=== PATIENT | female | born 1955 | race Caucasian/White ===

== ENCOUNTER 2023-08-17 16:11 | Inpatient (IN) | payer MEDICARE, SELFPAY ==
[2023-08-17] VITALS (32 sets, daily range): BP systolic 122–187; BP diastolic 70–90; PULSE 74–92; TEMP 36.4–36.7; O2SAT 90–96; BMI 48.1; BMI 37.5
--- NOTE | 2023-08-17 16:18 | ED.FALL1 ---
HPI HPI - Fall General Chief Complaint: Fall Stated Complaint: FALL Time Seen by Provider: 08/17/23 16:18 Source: patient History of Present Illness HPI Narrative: This patient brought to us by paramedics from her home for a fall. Apparently she lives independently. Apparently friends came to her house and she was found on the floor. They summoned paramedics and they left her on the floor. The paramedics indicate that she was awake alert oriented x 3. She has some discomfort in her left knee and left foot and ankle area but really did not complain of anything else. She cannot confirm exactly how long she has been on the floor. She does not have a headache chest pain or shortness of breath at the time. Does not have any pain in her upper extremities. She has no pain in her pelvis or right lower extremity. . Related Data Home Medications ?Medication ?Instructions ?Recorded ?Confirmed No Known Home Medications 08/17/23 08/17/23 Allergies Allergy/AdvReac Type Severity Reaction Status Date / Time Penicillins Allergy Unknown Verified 08/17/23 16:29 shellfish derived Allergy Unknown Verified 08/17/23 16:29 Opioid HPI Opioid Management Most Recent Pain and Opioid Data: No Data to Display Exam Narrative Exam Narrative: She was seen immediately on arrival by myself. Vitals are yet to be taken. She is awake alert patient's GCS is 15. She was not sure what year it was but other questions were answered appropriately. HEENT shows no abrasions contusions or evidence of injury. She has no tenderness to palpation of the calvarium or the cervical spine. Her chest wall is nontender. No discomfort with palpating the ribs or the sternum. Her breath sounds are normal. She is obese but does not complain of any abdominal pain or pelvic pain at this time. Passive range of motion of the right lower extremity reproduces no pain or discomfort. However she does have discomfort with movement of her left lower extremity. Skin is warm and dry mucous memories are moist and pink she does not have any pallor or diaphoresis Constitutional Vital Signs, click to edit/add: Last Vital Signs Temp 98.1 F 08/17/23 16:13 Pulse 80 08/17/23 18:30 Resp 23 H 08/17/23 18:30 BP 173/84 H 08/17/23 18:00 Pulse Ox 93 L 08/17/23 18:30 O2 Del Method Room Air 08/17/23 16:13 Course Vital Signs Vital signs: Vital Signs Temperature 98.1 F 08/17/23 16:13 Pulse Rate 89 08/17/23 16:13 Respiratory Rate 24 H 08/17/23 16:13 Blood Pressure 150/90 H 08/17/23 16:13 Pulse Oximetry 94 L 08/17/23 16:13 Oxygen Delivery Method Room Air 08/17/23 16:13 Temperature 98.1 F 08/17/23 16:13 Pulse Rate 80 08/17/23 18:30 Respiratory Rate 23 H 08/17/23 18:30 Blood Pressure 173/84 H 08/17/23 18:00 Pulse Oximetry 93 L 08/17/23 18:30 Oxygen Delivery Method Room Air 08/17/23 16:13 MDM - Fall MDM Narrative Medical decision making narrative: Preliminary review of the patient's head CT shows a large area of encephalomalacia of the left frontal lobe consistent with her previous stroke many years ago. These findings were noted on the 2019 CT of her head. Her twelve-lead EKG today shows what appears to be new ST segment changes over the inferior lateral area and her troponin is elevated as well. We have given her 160 mg of aspirin but I will wait for the official CT reading before starting any heparin. Additionally we will repeat the troponin level. She says that she did not recall having any palpitations pain pressure or discomfort in her chest in the last several days but she is a very poor historian at this time. Her CPK is elevated consistent with her lying on the floor. She also now complains of knee pain so we will have to image that area as well. This patient's repeat troponin came back at 168 which is above the previous 146 level. We have started her on a heparin drip since her CT brain showed no acute hemorrhage or abnormality. All her plain imaging studies are normal. We will call the hospitalist and see if they would like to keep the patient here. As previously noted her twelve-lead EKG shows some inferior lateral ST segment depression and recurrently trying to avail ourselves to previous EKGs. Lab Data Labs: Lab Results 08/17/23 08/17/23 Range/Units 16:46 17:55 WBC 10.4 (4.0-11.0) 10^3/uL RBC 5.61 H (4.20-5.40) 10^6/uL Hgb 16.3 H (12.0-16.0) g/dL Hct 50.2 H (36.0-48.0) % MCV 89.5 (81.0-99.0) fL MCH 29.1 (26.7-34.0) pg MCHC 32.5 (29.9-35.2) g/dL RDW 13.8 (11.0-15.0) % Plt Count 241 (150-450) 10^3/uL MPV 9.9 (9.5-13.5) fL Neut % (Auto) 83.8 H (43.0-75.0) % Lymph % (Auto) 6.4 L (20.5-60.0) % [place] % (Auto) 8.2 (1.7-12.0) % Eos % (Auto) 0.3 L (0.9-7.0) % Baso % (Auto) 0.9 (0.2-2.0) % Neut # (Auto) 8.7 H (1.4-6.5) 10^3/uL Lymph # (Auto) 0.7 L (1.2-3.8) 10^3/uL [place] # (Auto) 0.9 H (0.3-0.8) 10^3/uL Eos # (Auto) 0.0 (0.0-0.7) 10^3/uL Baso # (Auto) 0.1 (0.0-0.1) 10^3/uL Abs Immat Gran (auto) 0.04 H (0.00-0.03) 10^3/uL Imm/Tot Granulo (auto) 0.4 (0.0-0.5) % PT 11.9 H (9.0-11.6) sec INR 1.14 Sodium 146 H (136-145) mmol/L Potassium 3.4 L (3.5-5.1) mmol/L Chloride 105 (98-107) mmol/L Carbon Dioxide 29.4 (21.0-32.0) mmol/L Anion Gap 15.0 BUN 22.0 H (7.0-18.0) mg/dL Creatinine 1.70 H (0.55-1.02) mg/dL Est GFR ( Amer) 36 L (>=60) Est GFR (Non-Af Amer) 30 L (>=60) BUN/Creatinine Ratio 12.9 Glucose 198 H (74-106) mg/dL Lactate 2.4 H* (0.4-2.0) mmol/L Calcium 9.6 (8.5-10.1) mg/dL Total Bilirubin 3.3 H (0.2-1.0) mg/dL AST 36 (15-37) U/L ALT 14 (14-59) U/L Alkaline Phosphatase 68 (46-116) U/L Total Creatine Kinase 808 H* (26-192) U/L Troponin I High Sens 146.4 H* 160.5 H* (4.0-51.3) pg/mL Total Protein 6.5 (6.4-8.2) g/dL Albumin 3.0 L (3.4-5.0) g/dL Globulin 3.5 g/dL Albumin/Globulin Ratio 0.9 Discharge Plan Discharge Chief Complaint: Fall Clinical Impression: Rhabdomyolysis, Non-ST elevated myocardial infarction (non-STEMI) Patient Disposition: Still a Patient Prescriptions / Home Meds: No Action No Known Home Medications Print Language: Cape Verdean Referrals: Shaikh Brewer MD [Primary Care Provider] - 1 week
--- NOTE | 2023-08-17 16:20 | ECG_ITS ---
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
--- NOTE | 2023-08-17 16:21 | XR_ITS ---
The [address] [address] Patient Name: AYAD NICHOLE MRN: [id number] date: 1955 Sex: F Assigned Patient Location: ER Current Patient Location: ER Accession/Order Number: [id number] Exam Date: 08/17/2023 16:55 Report Date: 08/17/2023 18:27 At the request of: ANGEL SAUCEDA Procedure: XR hip LT 2V w/ pelvis EXAM: XR hip LT 2V w/ pelvis, XR knee LT 3V, XR foot LT min 3V, XR ankle LT min 3V HISTORY: Fall COMPARISON: None. TECHNIQUE: Multiple views of the left hip, knee, ankle and foot FINDINGS: Left hip: No acute fracture or dislocation. The soft tissues are unremarkable. Left knee: No acute fracture or dislocation. No effusion. The soft tissue is unremarkable. Left foot and ankle: There is no acute fracture or dislocation. Talar dome is congruent. Ankle mortise is unremarkable. Lisfranc joint is unremarkable. The soft tissues are unremarkable. XR/XR hip LT 2V w/ pelvis IMPRESSION: No acute processes. Electronically authenticated by: APOORVA JACKSON Date: 08/17/2023 18:27
--- NOTE | 2023-08-17 16:24 | XR_ITS ---
The [address] [address] Patient Name: AYAD NICHOLE MRN: [id number] date: 1955 Sex: F Assigned Patient Location: ER Current Patient Location: ER Accession/Order Number: [id number] Exam Date: 08/17/2023 16:55 Report Date: 08/17/2023 18:27 At the request of: ANGEL SAUCEDA Procedure: XR ankle LT min 3V EXAM: XR hip LT 2V w/ pelvis, XR knee LT 3V, XR foot LT min 3V, XR ankle LT min 3V HISTORY: Fall COMPARISON: None. TECHNIQUE: Multiple views of the left hip, knee, ankle and foot FINDINGS: Left hip: No acute fracture or dislocation. The soft tissues are unremarkable. Left knee: No acute fracture or dislocation. No effusion. The soft tissue is unremarkable. Left foot and ankle: There is no acute fracture or dislocation. Talar dome is congruent. Ankle mortise is unremarkable. Lisfranc joint is unremarkable. The soft tissues are unremarkable. XR/XR ankle LT min 3V IMPRESSION: No acute processes. Electronically authenticated by: APOORVA JACKSON Date: 08/17/2023 18:27
--- NOTE | 2023-08-17 16:24 | XR_ITS ---
The [address] [address] Patient Name: AYAD NICHOLE MRN: [id number] date: 1955 Sex: F Assigned Patient Location: ER Current Patient Location: ER Accession/Order Number: [id number] Exam Date: 08/17/2023 16:55 Report Date: 08/17/2023 18:27 At the request of: ANGEL SAUCEDA Procedure: XR foot LT min 3V EXAM: XR hip LT 2V w/ pelvis, XR knee LT 3V, XR foot LT min 3V, XR ankle LT min 3V HISTORY: Fall COMPARISON: None. TECHNIQUE: Multiple views of the left hip, knee, ankle and foot FINDINGS: Left hip: No acute fracture or dislocation. The soft tissues are unremarkable. Left knee: No acute fracture or dislocation. No effusion. The soft tissue is unremarkable. Left foot and ankle: There is no acute fracture or dislocation. Talar dome is congruent. Ankle mortise is unremarkable. Lisfranc joint is unremarkable. The soft tissues are unremarkable. XR/XR foot LT min 3V IMPRESSION: No acute processes. Electronically authenticated by: APOORVA JACKSON Date: 08/17/2023 18:27
[2023-08-17] MEDS: 0.9 % SODIUM CHLORIDE 1,000 ML 999 ML IV (16:43)
--- NOTE | 2023-08-17 17:01 | CT_ITS ---
The [address] [address] Patient Name: AYAD NICHOLE MRN: [id number] date: 1955 Sex: F Assigned Patient Location: ER Current Patient Location: ER Accession/Order Number: [id number] Exam Date: 08/17/2023 16:55 Report Date: 08/17/2023 18:05 At the request of: ANGEL SAUCEDA Procedure: CT head/brain wo con HEAD CT WITHOUT CONTRAST, 08/17/2023 4:55 PM EDT: CLINICAL HISTORY: Fall. COMPARISON: CT head dated 06/09/2018. TECHNIQUE: Noncontrast CT imaging was performed from skull base to the vertex. Sagittal and coronal reconstructions performed. Dose reduction techniques were achieved by using automated exposure control and/or adjustment of mA and/or kV according to patient size and/or use of iterative reconstruction technique. FINDINGS: Ventricular and sulcal size is normal for the patient's age. Stable mild chronic small vessel ischemic changes and left cerebral hemispheric chronic infarcts. There is no mass effect, midline shift or intracranial hemorrhage. There is no evidence of acute infarction. There are no extra axial fluid collections. Visualized paranasal sinuses, mastoid air cells and orbital contents are unremarkable. CT/CT head/brain wo con IMPRESSION: No acute intracranial abnormality. Electronically authenticated by: LISET HUNTER Date: 08/17/2023 18:05
[2023-08-17 17:08] LABS: Basophils Absolute Auto 0.1 10^3/uL (0.0-0.1); Basophils Percent Auto 0.9 % (0.2-2.0); Eosinophils Percent Auto 0.3 % (0.9-7.0); Hematocrit 50.2 % (36.0-48.0); Hemoglobin 16.3 g/dL (12.0-16.0); Immature Granulocytes Abs Auto 0.04 10^3/uL (0.00-0.03); Immature Granulocytes Pct Auto 0.4 % (0.0-0.5); Lymphocytes Absolute Auto 0.7 10^3/uL (1.2-3.8); Lymphocytes Percent Auto 6.4 % (20.5-60.0); Mean Corpuscular HGB Conc 32.5 g/dL (29.9-35.2); Mean Corpuscular Hemoglobin 29.1 pg (26.7-34.0); Mean Corpuscular Volume 89.5 fL (81.0-99.0); Mean Platelet Volume 9.9 fL (9.5-13.5); Monocytes Absolute Auto 0.9 10^3/uL (0.3-0.8); Monocytes Percent Auto 8.2 % (1.7-12.0); Neutrophils Absolute Auto 8.7 10^3/uL (1.4-6.5); Neutrophils Percent Auto 83.8 % (43.0-75.0); Platelet Count 241 10^3/uL (150-450); Red Blood Count 5.61 10^6/uL (4.20-5.40); Red Cell Distribution Width 13.8 % (11.0-15.0); White Blood Count 10.4 10^3/uL (4.0-11.0)
--- NOTE | 2023-08-17 17:20 | XR_ITS ---
The [address] [address] Patient Name: AYAD NICHOLE MRN: [id number] date: 1955 Sex: F Assigned Patient Location: ER Current Patient Location: ER Accession/Order Number: [id number] Exam Date: 08/17/2023 16:55 Report Date: 08/17/2023 18:23 At the request of: ANGEL SAUCEDA Procedure: XR chest 1V EXAM: XR chest 1V HISTORY: Trauma COMPARISON: 07/13/2022 TECHNIQUE: Chest X-ray AP, 1 view FINDINGS: Support devices: None. Lungs/pleura: No consolidation, effusion, or pneumothorax. Heart and mediastinum: Cardiomegaly. Aortic valve and mitral valve annulus calcification. Bones: No acute abnormality identified. XR/XR chest 1V Impression: Cardiomegaly. No radiographic evidence of acute cardiopulmonary process. Electronically authenticated by: APOORVA JACKSON Date: 08/17/2023 18:23
[2023-08-17 17:26] LABS: INR 1.14; Prothrombin Time 11.9 sec (9.0-11.6)
[2023-08-17 17:34] LABS: Carbon Dioxide 29.4 mmol/L (21.0-32.0); Chloride 105 mmol/L (98-107); Glucose 198 mg/dL (74-106); Potassium 3.4 mmol/L (3.5-5.1); Sodium 146 mmol/L (136-145)
[2023-08-17 17:35] LABS: Alanine Aminotransferase 14 U/L (14-59); Albumin Globulin Ratio 0.9; Alkaline Phosphatase 68 U/L (46-116); Aspartate Amino Transferase 36 U/L (15-37); BUN Creatinine Ratio 12.9; Bilirubin Total 3.3 mg/dL (0.2-1.0); Calcium 9.6 mg/dL (8.5-10.1); Estimated GFR (African America 36 (>=60); Estimated GFR (Non-African Ame 30 (>=60); Globulin 3.5 g/dL; Total Protein 6.5 g/dL (6.4-8.2)
[2023-08-17 17:40] LABS: Creatine Kinase 808 U/L (26-192); Lactate/Lactic Acid 2.4 mmol/L (0.4-2.0); Troponin I High Sensitivity 146.4 pg/mL (4.0-51.3)
--- NOTE | 2023-08-17 17:49 | XR_ITS ---
The [address] [address] Patient Name: AYAD NICHOLE MRN: [id number] date: 1955 Sex: F Assigned Patient Location: ER Current Patient Location: ER Accession/Order Number: [id number] Exam Date: 08/17/2023 17:58 Report Date: 08/17/2023 18:27 At the request of: ANGEL SAUCEDA Procedure: XR knee LT 3V EXAM: XR hip LT 2V w/ pelvis, XR knee LT 3V, XR foot LT min 3V, XR ankle LT min 3V HISTORY: Fall COMPARISON: None. TECHNIQUE: Multiple views of the left hip, knee, ankle and foot FINDINGS: Left hip: No acute fracture or dislocation. The soft tissues are unremarkable. Left knee: No acute fracture or dislocation. No effusion. The soft tissue is unremarkable. Left foot and ankle: There is no acute fracture or dislocation. Talar dome is congruent. Ankle mortise is unremarkable. Lisfranc joint is unremarkable. The soft tissues are unremarkable. XR/XR knee LT 3V IMPRESSION: No acute processes. Electronically authenticated by: APOORVA JACKSON Date: 08/17/2023 18:27
[2023-08-17] MEDS: ASPIRIN 81 MG TAB.CHEW 162 MG PO (18:10)
[2023-08-17 18:43] LABS: Troponin I High Sensitivity 160.5 pg/mL (4.0-51.3)
[2023-08-17] MEDS: HEPARIN SODIUM,PORCINE/D5W 25,000 UNIT/500 ML IV.SOLN 20 UNIT IV (18:58)
[2023-08-17] MEDS: HEPARIN SODIUM (PORCINE) 5,000 UNIT/ML VIAL 4000 UNIT IV (18:58)
--- NOTE | 2023-08-17 19:15 | ECG_ITS ---
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
[2023-08-17 19:35] LABS: Bilirubin Urine SMALL (NEGATIVE); Blood Urine TRACE-I (NEGATIVE); Clarity Urine CLEAR (CLEAR); Color Urine YELLOW (YELLOW); Glucose Urine UA NEGATIVE (NEGATIVE); Ketones Urine 15 mg/dL (NEGATIVE); Leukocyte Esterase Urine LARGE (NEGATIVE); Nitrite Urine NEGATIVE (NEGATIVE); Protein Urine >=300 mg/dL (NEG/TRACE); Specific Gravity Urine 1.025 (1.005-1.025)
[2023-08-17 19:36] LABS: Urine Microscopic Indicated YES
[2023-08-17 19:48] LABS: Bacteria Urine LARGE #/HPF (NONE SEEN); RBC Urine NONE SEEN #/HPF (0-2); WBC Urine >100 #/HPF (NONE SEEN)
[2023-08-17 19:49] LABS: Amorphous Sediment Urine MANY; Cast Seen? NONE SEEN #/LPF (NONE SEEN); Crystals Seen? None Seen #/HPF (None Seen); Mucus Urine MODERATE (NONE SEEN); Squamous Epithelial Cell Urine MODERATE #/LPF (NONE/RARE); Urine Culture Indicated YES
--- NOTE | 2023-08-17 19:52 | ED.GENADUL1 ---
HPI HPI - General Adult General Chief complaint: Fall Stated complaint: FALL Time Seen by Provider: 08/17/23 16:18 Source: patient Mode of arrival: ambulance History of Present Illness HPI narrative: 67-year-old female presented for weakness symptoms initially seen by Dr. Rees and signed out to me after discussing the case with him thoroughly. Please see his full history and physical exam. Related Data Home Medications ?Medication ?Instructions ?Recorded ?Confirmed No Known Home Medications 08/17/23 08/17/23 Allergies Allergy/AdvReac Type Severity Reaction Status Date / Time Penicillins Allergy Unknown Verified 08/17/23 16:29 shellfish derived Allergy Unknown Verified 08/17/23 16:29 Opioid HPI Opioid Management Most Recent Opioid Data: No Data to Display Exam Constitutional Vital Signs, click to edit/add: Last Vital Signs Temp 98.1 F 08/17/23 16:13 Pulse 82 08/17/23 19:50 Resp 29 H 08/17/23 19:50 BP 157/83 H 08/17/23 19:31 Pulse Ox 93 L 08/17/23 19:50 O2 Del Method Room Air 08/17/23 16:13 Course Vital Signs Vital signs: Vital Signs Temperature 98.1 F 08/17/23 16:13 Pulse Rate 89 08/17/23 16:13 Respiratory Rate 24 H 08/17/23 16:13 Blood Pressure 150/90 H 08/17/23 16:13 Pulse Oximetry 94 L 08/17/23 16:13 Oxygen Delivery Method Room Air 08/17/23 16:13 Temperature 98.1 F 08/17/23 16:13 Pulse Rate 82 08/17/23 19:50 Respiratory Rate 29 H 08/17/23 19:50 Blood Pressure 157/83 H 08/17/23 19:31 Pulse Oximetry 93 L 08/17/23 19:50 Oxygen Delivery Method Room Air 08/17/23 16:13 Medical Decision Making MDM Narrative Medical decision making narrative: 2 troponins have come back elevated but not significantly changed. The patient refuses any intervention such as a heart catheterization. Family relates that she had a heart attack a year ago and refused any intervention and refuses any now. Therefore, there is no indication for transfer of this patient. I have spoken to Dr. Enciso from cardiology who is in agreement and the patient is being admitted to the ICU. Lab Data Lab results reviewed: Yes I reviewed the patient's lab results Labs: Lab Results 08/17/23 08/17/23 08/17/23 Range/Units 16:46 17:55 19:25 WBC 10.4 (4.0-11.0) 10^3/uL RBC 5.61 H (4.20-5.40) 10^6/uL Hgb 16.3 H (12.0-16.0) g/dL Hct 50.2 H (36.0-48.0) % MCV 89.5 (81.0-99.0) fL MCH 29.1 (26.7-34.0) pg MCHC 32.5 (29.9-35.2) g/dL RDW 13.8 (11.0-15.0) % Plt Count 241 (150-450) 10^3/uL MPV 9.9 (9.5-13.5) fL Neut % (Auto) 83.8 H (43.0-75.0) % Lymph % (Auto) 6.4 L (20.5-60.0) % [place] % (Auto) 8.2 (1.7-12.0) % Eos % (Auto) 0.3 L (0.9-7.0) % Baso % (Auto) 0.9 (0.2-2.0) % Neut # (Auto) 8.7 H (1.4-6.5) 10^3/uL Lymph # (Auto) 0.7 L (1.2-3.8) 10^3/uL [place] # (Auto) 0.9 H (0.3-0.8) 10^3/uL Eos # (Auto) 0.0 (0.0-0.7) 10^3/uL Baso # (Auto) 0.1 (0.0-0.1) 10^3/uL Abs Immat Gran (auto) 0.04 H (0.00-0.03) 10^3/uL Imm/Tot Granulo (auto) 0.4 (0.0-0.5) % PT 11.9 H (9.0-11.6) sec INR 1.14 Sodium 146 H (136-145) mmol/L Potassium 3.4 L (3.5-5.1) mmol/L Chloride 105 (98-107) mmol/L Carbon Dioxide 29.4 (21.0-32.0) mmol/L Anion Gap 15.0 BUN 22.0 H (7.0-18.0) mg/dL Creatinine 1.70 H (0.55-1.02) mg/dL Est GFR ( Amer) 36 L (>=60) Est GFR (Non-Af Amer) 30 L (>=60) BUN/Creatinine Ratio 12.9 Glucose 198 H (74-106) mg/dL Lactate 2.4 H* (0.4-2.0) mmol/L Calcium 9.6 (8.5-10.1) mg/dL Total Bilirubin 3.3 H (0.2-1.0) mg/dL AST 36 (15-37) U/L ALT 14 (14-59) U/L Alkaline Phosphatase 68 (46-116) U/L Total Creatine Kinase 808 H* (26-192) U/L Troponin I High Sens 146.4 H* 160.5 H* (4.0-51.3) pg/mL Total Protein 6.5 (6.4-8.2) g/dL Albumin 3.0 L (3.4-5.0) g/dL Globulin 3.5 g/dL Albumin/Globulin Ratio 0.9 Urine Color Yellow (YELLOW) Urine Clarity Clear (CLEAR) Urine pH 7.0 (5.0-9.0) Ur Specific [place] 1.025 (1.005-1.025) Urine Protein >=300 A (NEG/TRACE) mg/dL Urine Glucose (UA) Negative (NEGATIVE) mg/dL Urine Ketones 15 A (NEGATIVE) mg/dL Urine Occult Blood Trace-i (NEGATIVE) Urine Nitrite Negative (NEGATIVE) Urine Bilirubin Small A (NEGATIVE) Urine Urobilinogen 1.0 (0.2-1.0) EU/dL Ur Leukocyte Esterase Large A (NEGATIVE) Urine RBC None seen (0-2) #/HPF Urine WBC >100 A (NONE SEEN) #/HPF Ur Squamous Epith Cells Moderate A (NONE/RARE) #/LPF Urine Crystals None seen (None Seen) #/HPF Amorphous Sediment Many Urine Bacteria Large A (NONE SEEN) #/HPF Urine Casts None seen (NONE SEEN) #/LPF Urine Mucus Moderate A (NONE SEEN) Ur Culture Indicated? Yes Imaging Data Chest x-ray: Radiologist's impression: ITS Impressions Hip/Pelvis X-Ray 08/17/23 16:21 IMPRESSION: No acute processes. Electronically authenticated by: APOORVA JACKSON Date: 08/17/2023 18:27 Ankle X-Ray 08/17/23 16:24 IMPRESSION: No acute processes. Electronically authenticated by: APOORVA JACKSON Date: 08/17/2023 18:27 Foot X-Ray 08/17/23 16:24 IMPRESSION: No acute processes. Electronically authenticated by: APOORVA JACKSON Date: 08/17/2023 18:[address] 08/17/23 17:01 IMPRESSION: No acute intracranial abnormality. Electronically authenticated by: LISET HUNTER Date: 08/17/2023 18:05 Chest X-Ray 08/17/23 17:20 Impression: Cardiomegaly. No radiographic evidence of acute cardiopulmonary process. Electronically authenticated by: APOORVA JACKSON Date: 08/17/2023 18:23 Knee X-Ray 08/17/23 17:49 IMPRESSION: No acute processes. Electronically authenticated by: APOORVA LIZEZTHAKANKSHA Date: 08/17/2023 18:27 ECG Data Attestation: I personally reviewed and interpreted this ECG as follows: (EKG on my interpretation, timed 7:25 PM, shows sinus rhythm with no ST elevation. Slight depression of the ST segment is present in V5 and V6.) Discharge Plan Discharge Chief Complaint: Fall Clinical Impression: Rhabdomyolysis, Non-ST elevated myocardial infarction (non-STEMI) Patient Disposition: Admitted As Inpatient Time of Disposition Decision: 19:54 Condition: Fair Prescriptions / Home Meds: No Action No Known Home Medications Print Language: Portuguese Referrals: Shaikh Brewer MD [Primary Care Provider] - 1 week
--- NOTE | 2023-08-17 20:15 | ECG_ITS ---
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
[2023-08-17 20:28] LABS: Lactate/Lactic Acid 1.8 mmol/L (0.4-2.0)
[2023-08-17] MEDS: CEFTRIAXONE 1,000 MG in 0.9 % SODIUM CHLORIDE 50 ML 100 MG IV (20:42)
[2023-08-17] MEDS: FAMOTIDINE/PF 20 MG/2 ML VIAL IV (22:21)
[2023-08-17] MEDS: 0.9 % SODIUM CHLORIDE 1,000 ML 100 ML IV (22:21)
[2023-08-18] VITALS (16 sets, daily range): BP systolic 112–171; BP diastolic 73–79; PULSE 66–80; TEMP 36.5–37.3; O2SAT 85–94
[2023-08-18 01:31] LABS: PTT Heparin Monitor 74.4 sec (48.2-68.6)
[2023-08-18 07:06] LABS: Basophils Absolute Auto 0.1 10^3/uL (0.0-0.1); Basophils Percent Auto 1.2 % (0.2-2.0); Eosinophils Absolute Auto 0.2 10^3/uL (0.0-0.7); Eosinophils Percent Auto 2.2 % (0.9-7.0); Hematocrit 45.3 % (36.0-48.0); Hemoglobin 14.2 g/dL (12.0-16.0); Immature Granulocytes Abs Auto 0.04 10^3/uL (0.00-0.03); Immature Granulocytes Pct Auto 0.5 % (0.0-0.5); Lymphocytes Percent Auto 11.9 % (20.5-60.0); Mean Corpuscular HGB Conc 31.3 g/dL (29.9-35.2); Mean Corpuscular Hemoglobin 28.8 pg (26.7-34.0); Mean Corpuscular Volume 91.9 fL (81.0-99.0); Mean Platelet Volume 9.9 fL (9.5-13.5); Monocytes Absolute Auto 0.9 10^3/uL (0.3-0.8); Neutrophils Absolute Auto 5.9 10^3/uL (1.4-6.5); Neutrophils Percent Auto 73.2 % (43.0-75.0); Platelet Count 205 10^3/uL (150-450); Red Blood Count 4.93 10^6/uL (4.20-5.40); Red Cell Distribution Width 13.9 % (11.0-15.0); White Blood Count 8.1 10^3/uL (4.0-11.0)
[2023-08-18 07:23] LABS: PTT Heparin Monitor 62.6 sec (48.2-68.6)
[2023-08-18] MEDS: 0.9 % SODIUM CHLORIDE 1,000 ML 100 ML IV (07:37)
[2023-08-18] MEDS: FAMOTIDINE/PF 20 MG/2 ML VIAL IV (07:37)
[2023-08-18 08:42] LABS: Alanine Aminotransferase 13 U/L (14-59); Albumin Globulin Ratio 0.8; Albumin Level 2.5 g/dL (3.4-5.0); Alkaline Phosphatase 57 U/L (46-116); Anion Gap 9.7; Aspartate Amino Transferase 28 U/L (15-37); BUN Creatinine Ratio 14.5; Bilirubin Total 2.1 mg/dL (0.2-1.0); Calcium 8.6 mg/dL (8.5-10.1); Carbon Dioxide 29.6 mmol/L (21.0-32.0); Chloride 108 mmol/L (98-107); Estimated GFR (African America 46 (>=60); Estimated GFR (Non-African Ame 38 (>=60); Globulin 3.2 g/dL; Glucose 175 mg/dL (74-106); Potassium 3.3 mmol/L (3.5-5.1); Sodium 144 mmol/L (136-145); Total Protein 5.7 g/dL (6.4-8.2)
--- NOTE | 2023-08-18 08:42 | CM.NOTE ---
Important Message From Medicare discussed with pt, pt verbalizes understanding and signs paper. Original given to pt and copy placed in pt's chart.
[2023-08-18 08:56] LABS: Lactate/Lactic Acid 0.8 mmol/L (0.4-2.0)
--- NOTE | 2023-08-18 09:46 | SWNOTE1 ---
SW received a message from case management and pt would like hospice consult. SW spoke to pt and daughter in room. Pt lives at home with her daughter. Pt's PCP is Dr. Brewer and they have stopped all her meds at home and is doing end of life care only. They do not have hospice in the home yet, but would like them. CHRIS provided them with a list of hospice agencies. Pt and family live in [place] and they would like [facility]. Referral sent to [facility]. Referral included face sheet, ED note, case management report, nursing notes, diagnostic imaging, vitals, and med list.
--- NOTE | 2023-08-18 10:37 | P.HP_ITS ---
HPI H&P: HPI History of Present Illness Chief complaint: FALL NON STENI RHABDOMYOLYSIS Narrative: 68-year-old female lives with her daughter who was away on a vacation. According to the patient, she fell at home and was unable to get up. She is unsure of how long she was on the floor for but according to the daughter it was likely for at least 2 days. Patient denies losing consciousness, head trauma. She was brought over by EMS when family friends to her house to check up on her and found her on the ground. Workup in ED revealed evidence of acute kidney injury, rhabdomyolysis along with NSTEMI for which she was started on IV fluids and IV heparin drip. There is no acute intracranial pathology on CT head. Patient was initially complaining of hip and knee pain with no evidence of fracture or dislocation on x-rays. Patient is requesting hospice/palliative care consult and does not want to be treated for any acute medical illness and would like to go home as soon as possible. Hospice consulted. D/c heparin drip/tele monitor. Only comfort care measures as per patient and daughter. The only reason patient agreed to come to ED was to make sure she did not have any fractured bone/joint. Opioid HPI Opioid Management Most Recent Opioid Data: Last Pain Scale 6 08/17/23 22:09 Last Pain Assessment 08/18/23 09:59 Last ORT Total Score 0 08/17/23 21:42 Last ORT Risk Category Low Risk 08/17/23 21:42 Review of Systems ROS Status of ROS 10 or more systems reviewed and unremark able except as noted in history and below [facility] Medical History (Updated 08/18/23 @ 10:46 by Shaikh Daniella MD) H/O: CVA (cerebrovascular accident) ?Z86.73 - Personal history of transient ischemic attack (TIA), and cerebral infarction without residual deficits (ICD-10) Obesity ?E66.9 - Obesity, unspecified (ICD-10) Stroke ?I63.9 - Cerebral infarction, unspecified (ICD-10) Myocardial infarct ?I21.9 - Acute myocardial infarction, unspecified (ICD-10) FHx: cholecystectomy ?Z83.79 - Family history of other diseases of the digestive system (ICD-10) Diabetes ?E11.9 - Type 2 diabetes mellitus without complications (ICD-10) Hypertension ?I10 - Essential (primary) hypertension (ICD-10) Surgical History (Updated 08/17/23 @ 23:23 by Priyanka Krishnan) History of arthroplasty of left shoulder ?Z96.612 - Presence of left artificial shoulder joint (ICD-10) History of hysterectomy ?Z90.710 - Acquired absence of both cervix and uterus (ICD-10) Social History (Updated 08/17/23 @ 23:25 by Priyanka Krishnan) Within the past year, how often did you have a drink containing alcohol: never Within the past year, how often did you have six or more drinks on one occasion: never Score interpretation: A score less than 3 is consistent with normal alcohol consumption. Smoking status: Never smoker Non-prescribed substance use: denies use Previous occupational history: retired Known occupational exposures/hazards: No Highest level of school completed/degree received: high school graduate Do you want help with school or training: No Are you now , , , , never or living with a partner: don't know In a typical week, how many times do you talk on the telephone with family, friends, or neighbors: once per week How often do you get together with friends or relatives: once per week How often do you attend jainism or hinduism services: never Do you belong to any clubs or organizations such as jainism groups unions, fraternal or athletic groups, or school groups: no Total score: 0 Score interpretation: A score of less than or equal to 1 indicates the most socially isolated. Little interest or pleasure in doing things: not at all Feeling down, depressed, or hopeless: not at all Feel stressed/tense/nervous/anxious/difficulty sleeping: not at all Do you think of yourself as: straight/heterosexual Gender Identity: female Meds Home Medications and Allergies Home Medications ?Medication ?Instructions ?Recorded ?Confirmed ?Type No Known Home Medications 08/17/23 08/17/23 History Allergies Allergy/AdvReac Type Severity Reaction Status Date / Time Penicillins Allergy Unknown Verified 08/17/23 16:29 shellfish derived Allergy Unknown Verified 08/17/23 16:29 Exam Constitutional Vital Signs, click to edit/add: Last Vital Signs Temp 99.1 F 08/18/23 07:00 Pulse 74 08/18/23 07:42 Resp 23 H 08/18/23 07:40 BP 163/73 H 08/18/23 07:20 Pulse Ox 90 L 08/18/23 09:56 O2 Del Method Nasal Cannula 08/18/23 09:56 O2 Flow Rate 2 08/18/23 04:40 Documenting provider has reviewed patient's vital signs: yes Common normals: no apparent distress and oriented x3 General appearance: cooperative Respiratory Common normals: normal respiratory effort and clear to auscultation bilaterally Effort & inspection: able to speak in complete sentences Auscultation: clear to auscultation bilaterally Cardio Common normals: regular rate, S1 normal heart sound and S2 normal heart sound Rate: regular rate Heart sounds: S1 normal and S2 normal GI Common normals: Normal to inspection, nondistended, normoactive bowel sounds present, soft to palpation, non-tender and no hepatosplenomegaly Palpation: soft and no hepatosplenomegaly Extremity Common normals: no clubbing, cyanosis or edema Neuro Common normals: oriented x3, moves all extremities and no focal motor deficits Psych Common normals: mental status grossly normal, denies hallucinations, denies homicidal ideation and denies suicidal ideation Results Labs Labs: Short CBC 08/17/23 08/18/23 Range/Units 16:46 06:49 WBC 10.4 8.1 (4.0-11.0) 10^3/uL Hgb 16.3 H 14.2 (12.0-16.0) g/dL Hct 50.2 H 45.3 (36.0-48.0) % Plt Count 241 205 (150-450) 10^3/uL BMP 08/17/23 08/18/23 16:46 06:49 Sodium 146 H 144 Potassium 3.4 L 3.3 L Chloride 105 108 H Carbon Dioxide 29.4 29.6 BUN 22.0 H 20.0 H Creatinine 1.70 H 1.38 H Glucose 198 H 175 H Calcium 9.6 8.6 Cardiac Enzymes 08/17/23 Range/Units 16:46 Total Creatine Kinase 808 H* (26-192) U/L Liver Function 08/17/23 08/18/23 Range/Units 16:46 06:49 Total Bilirubin 3.3 H 2.1 H (0.2-1.0) mg/dL AST 36 28 (15-37) U/L ALT 14 13 L (14-59) U/L Alkaline Phosphatase 68 57 (46-116) U/L Albumin 3.0 L 2.5 L (3.4-5.0) g/dL Urine 08/17/23 Range/Units 19:25 Urine Color Yellow (YELLOW) Urine Clarity Clear (CLEAR) Urine pH 7.0 (5.0-9.0) Ur Specific [place] 1.025 (1.005-1.025) Urine Protein >=300 A (NEG/TRACE) mg/dL Urine Glucose (UA) Negative (NEGATIVE) mg/dL Assessment and Plan Assessment and Plan (1) Non-ST elevated myocardial infarction (non-STEMI): Assessment and Plan: No chest pain, shortness of breath or palpitations. She was started on IV heparin drip overnight but it was discontinued earlier today as per patient's wishes. (2) Rhabdomyolysis: Assessment and Plan: On being on the ground for 2 days. Trended down with IV fluids. Stop IV fluid as per patient's request. Qualifiers: Rhabdomyolysis type: non-traumatic Qualified Code(s): M62.82 - Rha bdomyolysis (3) Hypertension: Assessment and Plan: Not on any medications Qualifiers: Hypertension type: primary hypertension Qualified Code(s): I10 - Essential (primary) hypertension (4) Diabetes: Assessment and Plan: Patient is not on any medications Qualifiers: Diabetes mellitus complication status: without complication Diabetes mellitus snf insulin use: without exterminator termite use Diabetes mellitus type: type 2 Qualified Code(s): E11.9 - Type 2 diabetes mellitus without complications (5) H/O: CVA (cerebrovascular accident): Assessment and Plan: She stopped using any medications about a year ago (6) KAYLEY (acute kidney injury): Assessment and Plan: Likely prerenal and improved with IV hydration. Not at baseline is stable. No intervention/IV fluids as per patient Plan Patient was admitted as inpatient as she presented with NSTEMI, acute kidney injury and rhabdomyolysis and was anticipated to require inpatient management of her acute critical care illness for greater than 2 midnights. However patient would like to withdraw care and wants only comfort care measures. Hospice consulted as per patient's request. Will discharge her home today after initial consultation with hospice.
--- NOTE | 2023-08-18 11:12 | CM.NOTE ---
Rounds made with Dr. Brewer, daughter at bedside. Dr. Brewer discussed findings and reason pt was admitted. Daughter states pt had stopped all of her medications the last visit to Dr. Pate office. Pt wishes to have Hospice care. Dr. Brewer discussed with pt about entering consult, unsure if Hospice would sign patient onto service. Pt and daughter wishes are to discharge to home today without further medical treatment.
--- NOTE | 2023-08-18 11:21 | SWNOTE1 ---
Sona from [facility] did receive referral and is in [place] and will come to see pt now. SW spoke to pt and daughter and they are hoping to go home sooner than later. SW let them know Sona is here at hospital and coming up to speak to them. If they would like to continue conversation at home, they can do that and just to let Sona from [place] know. Pt's daughter is going to have her go belt picker walker and a transport wheelchair at [employer]. She has a ramp to get her in. CHRIS took Sona from [facility] in to room to speak with pt and daughter.
--- NOTE | 2023-08-18 11:57 | SWNOTE1 ---
Pt is going to go home and Hospice is going to come to the home and determine if pt is eligible for hospice. At this time pt is going home with daughter with the intent of signing on to hospice, but not sure if she is eligible.
== END 2023-08-18 12:02 | disposition hospice, home (50) | DRG 281 ==
LOC: ER 20:03 → ICU 21:29
PROVIDERS: Emergency Medicine Emergency Medical Services; Nurse Practitioner Acute Care; Admitting Provider Internal Medicine; Emergency Provider Emergency Medicine; PCP Internal Medicine; Visit Provider Internal Medicine
DX: I21.4 Non-ST elevation (NSTEMI) myocardial infarction (principal); M62.82 Rhabdomyolysis; N39.0 Urinary tract infection, site not specified; N17.9 Acute kidney failure, unspecified; E66.9 Obesity, unspecified; Z68.37 Body mass index [BMI] 37.0-37.9, adult; E11.9 Type 2 diabetes mellitus without complications; I10 Essential (primary) hypertension; B96.20 Unspecified Escherichia coli [E. coli] as the cause of diseases classified elsewhere; Z96.612 Presence of left artificial shoulder joint; Z86.73 Personal history of transient ischemic attack (TIA), and cerebral infarction without residual deficits; I25.2 Old myocardial infarction; Z91.81 History of falling; Z90.710 Acquired absence of both cervix and uterus; Z66 Do not resuscitate
CPT/HCPCS: 36415; 70450; 71045; 73502; 73562; 73610; 73630; 80053; 81001; 82550; 83605; 83880; 84484; 85025; 85610; 85730; 87040; 87086; 87150; 87186; 93005; 94761; 96361; 96365; 96366; 96368; 96375; 96376; 99285